=== PATIENT | female | born 1985 | race Caucasian/White ===

== ENCOUNTER 2016-12-11 18:16 | Emergency (ER) | payer BC, OTHER ==
[2016-12-11] MEDS ORDERED: KETOROLAC TROMETHAMINE 60 MG/2 ML SDV IM ONE (18:44)
--- NOTE | 2016-12-11 18:44 | ER Document Report ---
ED Medical Screen (RME) - General Stated Complaint: BACK PAIN Notes: has had back pain for the past 3 weeks left back pain with sciatica Denies urinary incontinence, stool incontinence, saddle anesthesia had previously seen PCP and was treated with muscle relaxer I have greeted and performed a rapid initial assessment of this patient. A comprehensive ED assessment and evaluation of the patient, analysis of test results and completion of the medical decision making process will be conducted by additional ED providers. - Related Data Allergies/Adverse Reactions: No Known Allergies Allergy (Unverified 12/11/16 18:42) Physical Exam - Vital signs Vitals: Temp Pulse Resp BP Pulse Ox 97.8 F 103 H 18 139/93 H 99 12/11/16 18:38 12/11/16 18:38 12/11/16 18:38 12/11/16 18:38 12/11/16 18:38 Course - Vital Signs Vital signs: Temp Pulse Resp BP Pulse Ox 97.8 F 103 H 18 139/93 H 99 12/11/16 18:38 12/11/16 18:38 12/11/16 18:38 12/11/16 18:38 12/11/16 18:38
[2016-12-11] MEDS ORDERED: METHYLPREDNISOLONE ACETATE INJ 40 MG/1 ML ML IM ONE (21:03)
[2016-12-11] MEDS ORDERED: DEXAMETHASONE SOD PHOS INJ 10 MG/1 ML VIAL IM ONE (21:03)
[2016-12-11] MEDS ORDERED: METHOCARBAMOL 750 MG TABLET PO ONE (21:04)
[2016-12-11] MEDS ORDERED: HYDROCODONE/ACETAMINOPHEN 5-325 MG TABLET PO ONE (21:04)
--- NOTE | 2016-12-11 21:11 | ER Document Report ---
Addendum entered and electronically signed by JOAO MALDONADO FNP 21:18: Discharge - Discharge Clinical Impression: Sciatica Qualifiers: Laterality: left Qualified Code(s): M54.32 - Sciatica, left side Disposition: HOME, SELF-CARE Instructions: Low Back Pain ([facility]), Oral Narcotic Medication ([facility]) Prescriptions: Hydrocodone/Acetaminophen [Prospect 5-325 Tablet] 1 each PO Q4 PRN #20 tablet PRN Reason: Methocarbamol [Robaxin 750 mg Tablet] 750 mg PO ASDIR PRN #40 tablet PRN Reason: Naproxen Sodium [Anaprox Ds] 550 mg PO BID PRN #20 tablet PRN Reason: Original Note: ED General Pain - General Chief Complaint: Back Pain Stated Complaint: BACK PAIN Mode of Arrival: Ambulatory Information source: Patient Notes: This 31-year-old female presents to the emergency room today stating she has left lower back pain radiating down her left lower extremity laterally stopping at the knee. She does have a history of sciatica states that the pain is in the same area but more intense than exacerbations of been diagnosed with sciatica in the past. TRAVEL OUTSIDE OF THE [place] IN LAST 30 DAYS: No - HPI Onset: Just prior to arrival Onset/Duration: Gradual Quality of pain: Burning - Related Data Allergies/Adverse Reactions: No Known Allergies Allergy (Unverified 12/11/16 18:42) Past Medical History - General Information source: Patient - Social History Smoking Status: Never Smoker Chew tobacco use (# tins/day): No Frequency of alcohol use: None Drug Abuse: None Family History: None Patient has suicidal ideation: No Patient has homicidal ideation: No Renal/ Medical History: Denies: Hx Peritoneal Dialysis Review of Systems - Review of Systems Constitutional: No symptoms reported EENT: No symptoms reported Cardiovascular: No symptoms reported Respiratory: No symptoms reported Gastrointestinal: No symptoms reported Genitourinary: No symptoms reported Female Genitourinary: No symptoms reported Musculoskeletal: Back pain Skin: No symptoms reported Hematologic/Lymphatic: No symptoms reported Neurological/Psychological: No symptoms reported Physical Exam - Vital signs Vitals: Temp Pulse Resp BP Pulse Ox 97.8 F 103 H 18 139/93 H 99 12/11/16 18:38 12/11/16 18:38 12/11/16 18:38 12/11/16 18:38 12/11/16 18:38 Interpretation: Normal - General General appearance: Appears well, Alert - HEENT Head: Normocephalic, Atraumatic Eyes: Normal Pupils: PERRL - Respiratory Respiratory status: No respiratory distress Chest status: Nontender Breath sounds: Normal Chest palpation: Normal - Cardiovascular Rhythm: Regular Heart sounds: Normal auscultation Murmur: No - Abdominal Inspection: Normal Distension: No distension Bowel sounds: Normal Tenderness: Nontender Organomegaly: No organomegaly - Back Back: Normal, Nontender - Extremities General upper extremity: Normal inspection, Nontender, Normal color, Normal ROM , Normal temperature General lower extremity: Normal inspection, Nontender, Normal color, Normal ROM , Normal temperature, Normal weight bearing. No: Gayla's sign Thigh: Other - Patient states she has discomfort upon palpation the left SI joint with radiation lateral down the left lower extremity stopping at roughly the knee. - Neurological Neuro grossly intact: Yes Cognition: Normal Orientation: AAOx4 [place] Coma Scale Eye Opening: Spontaneous [place] Coma Scale Verbal: Oriented [place] Coma Scale Motor: Obeys Commands [place] Coma Scale Total: 15 Speech: Normal Motor strength normal: LUE, RUE, LLE, RLE Sensory: Normal - Psychological Associated symptoms: Normal affect, Normal mood - Skin Skin Temperature: Warm Skin Moisture: Dry Skin Color: Normal Course - Vital Signs Vital signs: Temp Pulse Resp BP Pulse Ox 97.8 F 103 H 18 139/93 H 99 12/11/16 18:38 12/11/16 18:38 12/11/16 18:38 12/11/16 18:38 12/11/16 18:38 - Transfer of Care Notes: 12/11/16 21:07 Patient has no numbness no tingling no loss of bowel or bladder function or saddle anesthesia is ambulatory with a limp good distal pulses. She has been under the care of her private doctor for sciatica for the latest exacerbation 7 days ago she has been on oral steroids she was dosed at 50 mg a day decreased to 25 mg a day and she went to pick her son up today and the pain was re-exacerbated. She does have accessible follow-up with her private doctor and will be following up within the next 48 hours for farther management. 12/11/16 21:15 Patient was advised not to take any of her Flexeril while taking the Robaxin Discharge - Discharge Clinical Impression: Sciatica Qualifiers: Laterality: left Qualified Code(s): M54.32 - Sciatica, left side Disposition: HOME, SELF-CARE Instructions: Low Back Pain ([facility]), Oral Narcotic Medication ([facility]) Prescriptions: Hydrocodone/Acetaminophen [Prospect 5-325 Tablet] 1 each PO Q4 PRN #20 tablet PRN Reason: Methocarbamol [Robaxin 750 mg Tablet] 750 mg PO ASDIR PRN #40 tablet PRN Reason: Naproxen Sodium [Anaprox Ds] 550 mg PO BID PRN #20 tablet PRN Reason:
[2016-12-12 02:53] VITALS: BP 129/86
== END 2016-12-11 22:15 | disposition home or self-care (01) ==
LOC: ER 18:16
DX: M54.32 Sciatica, left side (principal)
CPT/HCPCS: 99283; 96372; J1885; J3490; J1020; J1100

== ENCOUNTER → 2016-12-19 | Outpatient (CLI) | payer OTHER | LOC: RAD 07:12 | PROVIDERS: ATTEND Nurse Practitioner | DX: M54.5 Low back pain (principal) | CPT/HCPCS: 72148 ==

== ENCOUNTER 2020-03-15 12:52 | Outpatient (CLI) | payer OTHER ==
--- NOTE | 2020-03-15 14:45 | Non Stress Test Report ---
Non Stress Test Datetime Report Generated by CPN: 03/15/2020 14:44 DEMOGRAPHIC EGA NST: 34.0 INDICATION Indication for Study (NST) Other: AMA MONITORING Monitor Explained: Monitor Explained; Test Explained; Patient Verbalized Understanding Time on Monitor: 03/15/2020 13:05 Time off Monitor: 03/15/2020 14:27 NST Duration: 82 NST INTERVENTIONS NST Interventions: PO Hydration; Reposition Patient Physician Notified NST: C Hogue CNM BABY A: [id number] BABY A Movement : Present Contraction Frequency : NONE FHR Baseline : 140 Accelerations : 15X15 Decelerations : None Variability : Moderate 6-25bpm NST Review: Meets Criteria for Reactive NST NST Review and Verified By : Julio Cesar Chahal RN NST Results: Reactive NST REPORT Report Trigger: Send Report
== END 2020-03-15 14:27 | disposition home or self-care (01) ==
LOC: LC 12:52
PROVIDERS: ATTEND Obstetrics & Gynecology
DX: O24.419 Gestational diabetes mellitus in pregnancy, unspecified control (principal); O10.913 Unspecified pre-existing hypertension complicating pregnancy, third trimester; O09.523 Supervision of elderly multigravida, third trimester; Z3A.34 34 weeks gestation of pregnancy
CPT/HCPCS: 59025

== ENCOUNTER 2020-04-22 06:05 | Inpatient (IN) | payer OTHER ==
[2020-04-15 11:05] LABS: ABSOLUTE EOSINOPHILS # (AUTO) 0.1 10^3/uL (0.0-0.6); ABSOLUTE LYMPHOCYTES (AUTO) 1.3 10^3/uL (0.5-4.7); ABSOLUTE MONOCYTES (AUTO) 0.5 10^3/uL (0.1-1.4); ABSOLUTE NEUT (AUTO) 5.6 10^3/uL (1.7-8.2); BASOPHILS % (AUTO) 0.4 % (0-2); EOSINOPHILS % (AUTO) 1.5 % (0-6); HEMATOCRIT 27.4 % (36.0-47.0); HEMOGLOBIN 9.4 g/dL (12.0-15.5); LYMPHOCYTES % (AUTO) 17.3 % (13-45); MEAN CORPUSCULAR HEMOGLOBIN 27.2 pg (27.0-33.4); MEAN CORPUSCULAR HGB CONC 34.2 g/dL (32.0-36.0); MEAN CORPUSCULAR VOLUME 80 fl (80-97); MONOCYTES % (AUTO) 6.1 % (3-13); PLATELET COUNT 281 10^3/uL (150-450); RED BLOOD COUNT 3.44 10^6/uL (3.72-5.28); RED CELL DISTRIBUTION WIDTH 16.2 % (11.5-14.0); SEGMENTED NEUTROPHILS % (AUTO) 74.7 % (42-78); TOTAL CELLS COUNTED % (AUTO) 100 %; WHITE BLOOD COUNT 7.5 10^3/uL (4.0-10.5)
[2020-04-15 11:09] LABS: APPEARANCE,URINE SLIGHTLY-CLOUDY; BILIRUBIN,URINE NEGATIVE (NEGATIVE); COLOR,URINE YELLOW; GLUCOSE, URINE NEGATIVE (NEGATIVE); KETONES,URINE NEGATIVE (NEGATIVE); LEUKOCYTE ESTERASE,URINE TRACE (NEGATIVE); NITRITE,URINE NEGATIVE (NEGATIVE); PROTEIN,URINE NEGATIVE (NEGATIVE); URINE SPECIFIC GRAVITY 1.019; UROBILINOGEN,URINE NEGATIVE mg/dL (<2.0)
[2020-04-15 11:22] LABS: URINE AMPHETAMINES SCREEN NEGATIVE; URINE BARBITURATES SCREEN NEGATIVE; URINE BENZODIAZEPINES SCREEN NEGATIVE; URINE COCAINE SCREEN NEGATIVE; URINE MARIJUANA (THC) SCREEN NEGATIVE; URINE METHADONE SCREEN NEGATIVE; URINE PHENCYCLIDINE SCREEN NEGATIVE
[2020-04-22] MEDS ORDERED: RINGERS SOLUTION,LACTATED 1,000 ML IV PRN ×2 (07:06→09:01)
[2020-04-22] MEDS ORDERED: CEFAZOLIN 1 GM/D5W RTU 0 GM/0 ML RTUPB IV ONE (07:13)
[2020-04-22] MEDS ORDERED: CEFAZOLIN SODIUM 2 GM in DEXTROSE 5%-WATER 100 ML IV PRN (07:15)
[2020-04-22] MEDS ORDERED: DIPHENHYDRAMINE HCL 50 MG/ML VIAL ONE (07:17)
[2020-04-22] MEDS ORDERED: OXYTOCIN 10 UNIT/ML VIAL ONE (07:17)
[2020-04-22] MEDS ORDERED: KETOROLAC TROMETHAMINE INJ/PF 30 MG/1 ML SDV ONE (07:17)
[2020-04-22] MEDS ORDERED: GLYCOPYRROLATE INJ 0.4 MG/2 ML VIAL ONE (07:17)
[2020-04-22] MEDS ORDERED: PHENYLEPHRINE HCL INJ/PF 10 MG/1 ML SDV ONE (07:17)
[2020-04-22] MEDS ORDERED: ONDANSETRON HCL INJ/PF 4 MG/2 ML SDV ONE (07:18)
[2020-04-22] MEDS ORDERED: MIDAZOLAM 2 MG/2 ML INJ ONE (07:18)
[2020-04-22] MEDS ORDERED: OXYTOCIN/0.9 % SODIUM CHLORIDE 30 UNIT/500 ML RTUINJ ONE (07:18)
[2020-04-22] MEDS ORDERED: ACETAMINOPHEN 1,000 MG/100 ML RTUPB IV ONE (07:18)
[2020-04-22] MEDS ORDERED: FENTANYL CITRATE INJ/PF 100 MCG/2 ML AMPUL ONE (07:18)
[2020-04-22] MEDS ORDERED: MISOPROSTOL 0.2 MG TABLET ONE (08:21)
[2020-04-22] MEDS ORDERED: MORPHINE SULFATE 10 MG/ML INJ IV PRN (08:24)
[2020-04-22] MEDS ORDERED: MEPERIDINE HCL/PF INJ 25 MG/1 ML DISP.SYRIN IV PRN (08:24)
[2020-04-22] MEDS ORDERED: FENTANYL CITRATE INJ/PF 100 MCG/2 ML AMPUL IV PRN ×3 (08:24)
[2020-04-22] MEDS ORDERED: DIPHENHYDRAMINE HCL 50 MG/ML VIAL IV PRN (08:24)
[2020-04-22] MEDS ORDERED: PROMETHAZINE HCL INJ 25 MG/1 ML VIAL IV PRN ×3 (08:24→09:01)
[2020-04-22] MEDS ORDERED: OXYCODONE-ACETAMINOPHEN 5-325 MG TABLET PO PRN ×3 (08:24→09:01)
[2020-04-22] MEDS ORDERED: ACETAMINOPHEN 325 MG TABLET PO PRN (09:01)
[2020-04-22] MEDS ORDERED: DIPH/PERTUSS(ACELL)/TETANUS VAC/PF 0.5 ML SYR (>=10YO) IM PRN (09:01)
[2020-04-22] MEDS ORDERED: OXYTOCIN/0.9 % SODIUM CHLORIDE 30 UNIT/500 ML RTUINJ IV PRN (09:01)
[2020-04-22] MEDS ORDERED: ACETAMINOPHEN 1,000 MG/100 ML RTUPB IV PRN (09:01)
[2020-04-22] MEDS ORDERED: SIMETHICONE 80 MG TAB.CHEW PO PRN (09:01)
[2020-04-22] MEDS ORDERED: MEASLES,MUMPS&RUBELLA VACC/PF 0.5 ML VIAL SUBCUT PRN (09:01)
--- NOTE | 2020-04-22 09:11 | Brief Operative Note ---
BRIEF OPERATIVE REPORT DATE OF SURGERY: 04/22/20 TIME OF SURGERY: 08:00 PREOPERATIVE DIAGNOSIS: 39+3ega, H/o section, desires repeat section, hypertrophic scar POSTOPERATIVE DIAGNOSIS: SANTIAGO - delivered SURGEON: ROBY GUTIERREZ FINDINGS: VMI delivered 0816, Apgars 9/9, weight 9#7oz, normal bilateral tubes/ovaries. IVF 1000ml, UOP, 200ml, EBL 700ml, QBL pending. COMPLICATIONS: none ESTIMATED BLOOD LOSS: 700ml TISSUE REMOVED OR ALTERED: placenta and cord not sent TECHNICAL PROCEDURE: Scar revision, Repeat section
[2020-04-22] MEDS ORDERED: BUPIVACAINE HCL 0.25 % INJ/PF (2.5 MG/1 ML) 30 ML VIAL ONE (09:58)
--- NOTE | 2020-04-22 12:18 | Delivery Summary ---
Del Sum A-C Datetime Report Generated by CPN: 04/22/2020 12:18 DELIVERY PERSONNEL DELIVERY PERSONNEL: [id number] Delivery Doctor:: Sanaz Marcus MD Anesthesiologist:: Dr Mills BUSINESS APPLICATIONS DEVELOPER:: Ashutosh BUSINESS APPLICATIONS DEVELOPER Labor and Delivery Nurse:: Addis Byers, RNC Bread Pan Greaser:: Addis Modesta, RNC Nursery Nurse:: rekha garcia RN Editor Producer/NURSING STAFFING COORDINATOR: Millicent Hargrove, ST Editor Producer/NURSING STAFFING COORDINATOR: Nimisha Anil, AURICULOTHERAPIST MATERNAL INFORMATION Delivery Anesthesia: Spinal Medications After Delivery: Pitocin Bolus-Please Comment Estimated Blood Loss (ml): 600 Delivery QBL: 595 Maternal Complications: Other Complication Details: repeat c/s LABOR SUMMARY EDC: 04/26/2020 00:00 MEMBRANES Membranes Rupture Method: Artificial Rupture of Membranes: 04/22/2020 08:14 Length of Rupture (hr): 0.03 Amniotic Fluid Color: Clear Amniotic Fluid Amount: Moderate Amniotic Fluid Odor: None STAGES OF LABOR Stage 3 hr: 0 Stage 3 min: 2 CSECTION DELIVERY Primary Indication: Repeat Elective CSection Urgency: Scheduled CSection Incision: Lower Uterine Transverse BABY A INFORMATION Infant Delivery Date/Time: 04/22/2020 08:16 Method of Delivery: Nurse Controlled Delivery: No Born in Route : No : N/A Forceps: N/A Vacuum Extraction: N/A Shoulder Dystocia : No PRESENTATION/POSITION BABY A Presentation: Cephalic Cephalic Presentation: Vertex Vertex Position: Left Occipital Anterior Breech Presentation: N/A PLACENTA INFORMATION BABY A Placenta Delivery Time : 04/22/2020 08:18 Placenta Method of Delivery: Spontaneous Placenta Status: Delivered SCORES BABY A Heart Rate 1 min: >100 bpm Resp Effort 1 min: Good Cry Reflex Irritability 1 min: Cough or Sneeze or Pulls Away Muscle Tone 1 min: Active Motion Color 1 min: Body [place], Extremities Blue Resuscitation Effort 1 min: Tactile Stimulation SCORE 1 MIN: 9 Heart Rate 5 min: >100 bpm Resp Effort 5 min: Good Cry Reflex Irritability 5 min: Cough or Sneeze or Pulls Away Muscle Tone 5 min: Active Motion Color 5 min: Body [place], Extremities Blue SCORE 5 MIN: 9 INFORMATION BABY A Gestational Age at Delivery: 39.3 Gestational Status: Full Term- 39- 40.6 Weeks Outcome : Liveborn Infant Condition : Stable Infant Sex: Male WEIGHT/LENGTH BABY A Infant Birthweight (gm): 4270 Infant Weight (lb): 9 Weight (oz): 7 Length (in): 21.00 Infant Length (cm): 53.34 CORD INFORMATION BABY A No. Cord Vessels: 3 Cord Blood Taken: Yes-For Storage (Mom's Blood type +) Infant Suction: None ASSESSMENT BABY A Complications: None Physical Findings at Delivery: Within Normal Limits Infant Respirations: Appears Normal Skin to Skin: Yes Skin to Skin Time (min): 60 Manager Surgery/ALS Called : Yes Care By: Montse ORTEGA Transferred To: Nursery
[2020-04-22] MEDS: KETOROLAC TROMETHAMINE INJ/PF 30 MG/1 ML SDV IV SCH ×2 (14:15→22:11)
[2020-04-22] MEDS: HYDROMORPHONE HCL INJ/PF 2 MG/ML AMPULE IV PRN (14:16)
[2020-04-22] MEDS: DOCUSATE SODIUM 100 MG CAPSULE PO SCH ×2 (16:46→17:32)
[2020-04-22] MEDS: PRENATAL VITAMIN W DHA CAPSULE PO SCH (16:46)
[2020-04-22] MEDS: LEVOTHYROXINE SODIUM 0.1 MG TABLET PO SCH (16:46)
[2020-04-22] MEDS: OXYCODONE-ACETAMINOPHEN 5-325 MG TABLET PO PRN (20:55)
[2020-04-23] MEDS: OXYCODONE-ACETAMINOPHEN 5-325 MG TABLET PO PRN ×5 (04:35→21:25)
[2020-04-23] MEDS ORDERED: IBUPROFEN 800 MG TABLET ONE (04:59)
[2020-04-23] MEDS ORDERED: LIDOCAINE 0.5% INJ-PF (5 MG/ML) 50 ML SDV SUBCUT PRN (05:00)
[2020-04-23] MEDS ORDERED: LACTATED RINGERS 1000 ML IV PRN (05:00)
[2020-04-23] MEDS: IBUPROFEN 800 MG TABLET PO SCH ×4 (05:05→23:47)
[2020-04-23 06:47] LABS: HEMATOCRIT 27.6 % (36.0-47.0); HEMOGLOBIN 9.2 g/dL (12.0-15.5); MEAN CORPUSCULAR HEMOGLOBIN 27.1 pg (27.0-33.4); MEAN CORPUSCULAR HGB CONC 33.2 g/dL (32.0-36.0); MEAN CORPUSCULAR VOLUME 82 fl (80-97); PLATELET COUNT 253 10^3/uL (150-450); RED BLOOD COUNT 3.38 10^6/uL (3.72-5.28); WHITE BLOOD COUNT 10.5 10^3/uL (4.0-10.5)
[2020-04-23] MEDS: LEVOTHYROXINE SODIUM 0.1 MG TABLET PO SCH (07:11)
[2020-04-23] MEDS: HYDROMORPHONE HCL INJ/PF 2 MG/ML AMPULE IV PRN ×2 (07:28→18:37)
--- NOTE | 2020-04-23 07:49 | Operative Report ---
Operative Report DATE OF SURGERY: 04/22/20 PREOPERATIVE DIAGNOSIS: Hypertrophic Scar, H/o section, 39+3ega, abilio es repeat section, , h/o CHTN (no meds) POSTOPERATIVE DIAGNOSIS: SANTIAGO - delivered OPERATION: Repeat cesaeran section, Scar revision SURGEON: ROBY GUTIERREZ ANESTHESIA: Spinal TISSUE REMOVED OR ALTERED: placenta and cord COMPLICATIONS: none ESTIMATED BLOOD LOSS: 700ml QUANTITATIVE BLOOD LOSS: 595 INTRAOPERATIVE FINDINGS: VMI delivered 0816, Apgars 9/9, weight 9#7oz, normal bilateral tubes/ovaries. IVF 1000ml, UOP, 200ml, EBL 700ml PROCEDURE: Anesthesia provider: [Ashutosh Gomes MANUFACTURING TECHNICIAN] Urine output: [200ml] IV fluids: [700ml] Indications: [34yo at 39+3ega presents for repeat section. She has a history of section for failed IOL. She has a h/o CHTN but is not on medication. c/b AMA and h/o CRUZ. The risks, benefits, alternatives were reviewed and she desires to proceed with planned procedure. ] Procedure: The patient was taken to the operating room where spinal anesthesia w as obtained and found to be adequate. She was then prepped and draped in the normal sterile fashion and placed in the dorsal supine position with a leftward tilt. The Pfannenstiel scar was excised then incision made and carried through to the underlying layers of the fascia with the scalpel. The fascia was incised in the midline and the incision extended laterally with the Perez scissors. The superior aspect of the fascial incision was then grasped with Kcoher clamps elevated and the underlying rectus muscles dissected off [bluntly]. Attention was then turned to the inferior aspect of the fascial incision which in a similar fashion was grasped, tented up with Donte clamps, and the rectus muscles dissected off [bluntly]. The rectus muscles were then in the midline and the peritoneum at the amount identified and entered [bluntly]. The peritoneal incision was then extended superiorly and inferiorly with good visualization of the bladder. The bladder blade was inserted and the vesicouterine peritoneum identified grasped with Nepalese pickups and entered sharply with the Metzenbaum scissors. This incision was then extended laterally with the Metzenbaum scissors and a bladder flap created digitally. The bladder blade was then reinserted and the lower uterine segment incised in a transverse fashion with the scalpel. The uterine incision was then extended bluntly. The bladder blade was removed and the 's head was delivered from cephalic presentation atraumatically. The nose and mouth were suctioned and the cord doubly clamped and cut. And the infant was handed off to waiting pediatricians. The placenta was then delivered spontaneously and the uterus exteriorized and cleared of all clots and debris. The uterine incision was then repaired with 1- 0 Vicryl in a running locked fashion. A second layer of the same suture was used to obtain hemostasis via imbrication of the initial layer. The bladder flap was then repaired with 3-0 chromic in a running fashion. The uterus was returned to the patient's abdomen and Surgicel was placed to help with hemostasis. The gutters were cleared of all clots and debris. All operative sites were noted to be hemostatic. The fascia was reapproximated with 0 Vicryl in a running fashion from each lateral edge to the midline. The skin was closed with 3-0 Monocryl in a running subcuticular fashion with overlying Dermabond for additional dressing as well as wound closure. The patient tolerated the procedure well. Sponge lap needle and instrument counts are correct times 2. 2 g of Ancef were given prior to skin incision. The patient was taken to the recovery area awake and in stable condition.
[2020-04-23] MEDS: PRENATAL VITAMIN W DHA CAPSULE PO SCH (09:30)
[2020-04-23] MEDS: DOCUSATE SODIUM 100 MG CAPSULE PO SCH ×2 (09:30→17:07)
--- NOTE | 2020-04-23 11:14 | PDOC PROGRESS REPORT ---
Subjective-OB Progress Note for:: 04/23/20 Subjective: Doing well, holding baby, mild incisional pain, voiding, ambulating, hsb in room Physical Exam (OB) Vital Signs: Temp Pulse Resp BP Pulse Ox 97.7 F 70 18 120/69 96 04/23/20 07:53 04/23/20 07:53 04/23/20 07:53 04/23/20 07:53 04/23/20 07:53 Intake & Output 04/22/20 04/23/20 04/24/20 06:59 06:59 06:59 Intake Total 1000 2100 Output Total 2800 Balance 1000 -700 Weight 242.6 kg - PIH/Pre-Eclampsia DTR's: 1 + Clonus: Negative Headache: Absent Epigastric Pain: No Visual Changes: No - Dressing Removed: Yes Incision: Open, Well Approximated Closure Type: Surgical Glue - Lochia Lochia Amount: Scant < 10 ml Lochia Color: Rubra/Red - Abdomen Description: Soft, Round Hernia Present: No Fundal Description: Firm, Midline Fundal Height: u/u - u/2 Objective-Diagnostic Laboratory: 04/23/20 06:27 04/23/20 06:27 WBC 10.5 RBC 3.38 L Hgb 9.2 L Hct 27.6 L MCV 82 MCH 27.1 MCHC 33.2 RDW 17.0 H Plt Count 253 Assessment and Plan(PN) - Assessment and Plan (1) Advanced maternal age during Is this a current diagnosis for this admission?: Yes (2) S/P repeat low transverse Is this a current diagnosis for this admission?: Yes - Time Spent with Patient Time with patient: Less than 15 minutes Medications reviewed and adjusted accordingly: Yes - Disposition Within: within 48 hours
[2020-04-24] MEDS: OXYCODONE-ACETAMINOPHEN 5-325 MG TABLET PO PRN ×3 (01:52→11:58)
[2020-04-24] MEDS: LEVOTHYROXINE SODIUM 0.1 MG TABLET PO SCH (06:05)
[2020-04-24] MEDS: IBUPROFEN 800 MG TABLET PO SCH ×2 (06:05→11:58)
[2020-04-24] MEDS: DOCUSATE SODIUM 100 MG CAPSULE PO SCH (09:16)
[2020-04-24] MEDS: PRENATAL VITAMIN W DHA CAPSULE PO SCH (09:16)
--- NOTE | 2020-04-24 10:38 | PDOC PROGRESS REPORT ---
Subjective-OB Progress Note for:: 04/24/20 Subjective: Doing well, no c/o, , pain under control, holding baby, hsb at BS Physical Exam (OB) Vital Signs: Temp Pulse Resp BP Pulse Ox 97.9 F 79 18 123/61 99 04/24/20 07:31 04/24/20 07:31 04/24/20 07:31 04/24/20 07:31 04/24/20 07:31 Intake & Output 04/23/20 04/24/20 04/25/20 06:59 06:59 06:59 Intake Total 2100 1500 Output Total 2800 Balance -700 1500 - PIH/Pre-Eclampsia DTR's: 1 + Clonus: Negative Headache: Absent Epigastric Pain: No Visual Changes: No - Dressing Removed: - incision GUNJAN Incision: Open, Well Approximated Closure Type: Surgical Glue - Lochia Lochia Amount: Scant < 10 ml Lochia Color: Rubra/Red - Abdomen Description: Soft, Round Hernia Present: No Fundal Description: Firm, Midline Fundal Height: u/u - u/2 Objective-Diagnostic Laboratory: 04/23/20 06:27 Assessment and Plan(PN) - Assessment and Plan (1) Advanced maternal age during Is this a current diagnosis for this admission?: Yes (2) S/P repeat low transverse Is this a current diagnosis for this admission?: Yes - Time Spent with Patient Time with patient: Less than 15 minutes Medications reviewed and adjusted accordingly: Yes - Disposition Anticipated Discharge: Home Within: within 24 hours
--- NOTE | 2020-04-24 10:47 | PDOC DISCHARGE SUMMARY ---
Impression - Admit/DC Date/PCP Admission Date/Primary Care Provider: 04/22/20 06:06 QUAN PUGA MD Discharge Date: 04/24/20 - Discharge Diagnosis (1) Advanced maternal age during Is this a current diagnosis for this admission?: Yes (2) S/P repeat low transverse Is this a current diagnosis for this admission?: Yes - Additional Information Resuscitation Status: Full Code Discharge Diet: As Tolerated, Regular Discharge Activity: Activity As Tolerated, Pelvic Rest Referrals: QUAN PUGA MD [Primary Care Provider] - (rtc 1 week) Prescriptions: Oxycodone HCl/Acetaminophen [Percocet 5-325 mg Tablet] 1 tab PO Q4HP PRN #20 tablet PRN Reason: Ibuprofen [Motrin 800 mg Tablet] 800 mg PO Q6 #60 tablet Home Medications: Acetaminophen [Tylenol 325 mg Tablet] 3 tab PO Q6H PRN 03/15/20 Docusate Sodium [Colace 100 mg Capsule] 1 tab PO DAILY PRN 03/15/20 Ferrous Sulfate [Feosol 325 mg Tablet] 1 tab PO DAILY 03/15/20 Vits96/Iron Fum/Folic [ Tablet] 1 tab PO DAILY 03/15/20 Levothyroxine Sodium [Synthroid 0.1 mg Tablet] 0.1 mg PO DAILY 04/15/20 Ibuprofen [Motrin 800 mg Tablet] 800 mg PO Q6 #60 tablet 04/24/20 Oxycodone HCl/Acetaminophen [Percocet 5-325 mg Tablet] 1 tab PO Q4HP PRN #20 tablet 04/24/20 HPI Gestational Age: 39.3 Reason(s) for Admission: Ceasarean Section-Repeat, Advanced Maternal Age Procedures: NST, Ultrasound Intrapartum Procedure(s): : Low Cervical, Transverse Hospital Course Hospital Course: normal post op Results Laboratory Results: WBC 10.5 10^3/uL (4.0-10.5) 04/23/20 06:27 RBC 3.38 10^6/uL (3.72-5.28) L 04/23/20 06:27 Hgb 9.2 g/dL (12.0-15.5) L 04/23/20 06:27 Hct 27.6 % (36.0-47.0) L 04/23/20 06:27 MCV 82 fl (80-97) 04/23/20 06:27 MCH 27.1 pg (27.0-33.4) 04/23/20 06: MCHC 33.2 g/dL (32.0-36.0) 04/23/20 06:27 RDW 17.0 % (11.5-14.0) H 04/23/20 06:27 Plt Count 253 10^3/uL (150-450) 04/23/20 06:27 Lymph % (Auto) 17.3 % (13-45) 04/15/20 10:29 Glenn % (Auto) 6.1 % (3-13) 04/15/20 10:29 Eos % (Auto) 1.5 % (0-6) 04/15/20 10:29 Baso % (Auto) 0.4 % (0-2) 04/15/20 10:29 Absolute Neuts (auto) 5.6 10^3/uL (1.7-8.2) 04/15/20 10:29 Absolute Lymphs (auto) 1.3 10^3/uL (0.5-4.7) 04/15/20 10:29 Absolute Monos (auto) 0.5 10^3/uL (0.1-1.4) 04/15/20 10:29 Absolute Eos (auto) 0.1 10^3/uL (0.0-0.6) 04/15/20 10:29 Absolute Basos (auto) 0.0 10^3/uL (0.0-0.2) 04/15/20 10:29 Seg Neutrophils % 74.7 % (42-78) 04/15/20 10:29 POC Glucose 83 mg/dL (70-110) 04/22/20 05:24 Urine Color YELLOW 04/15/20 10:25 Urine Appearance SLIGHTLY-CLOUDY 04/15/20 10:25 Urine pH 6.0 (5.0-9.0) 04/15/20 10:25 Ur Specific [place] 1.019 04/15/20 10:25 Urine Protein NEGATIVE mg/dL (NEGATIVE) 04/15/20 10:25 Urine Glucose (UA) NEGATIVE mg/dL (NEGATIVE) 04/15/20 10:25 Urine Ketones NEGATIVE mg/dL (NEGATIVE) 04/15/20 10:25 Urine Blood NEGATIVE (NEGATIVE) 04/15/20 10:25 Urine Nitrite NEGATIVE (NEGATIVE) 04/15/20 10:25 Urine Bilirubin NEGATIVE (NEGATIVE) 04/15/20 10:25 Urine Urobilinogen NEGATIVE mg/dL (<2.0) 04/15/20 10:25 Ur Leukocyte Esterase TRACE (NEGATIVE) H 04/15/20 10:25 Urine WBC (Auto) 3 /HPF 04/15/20 10:25 Urine RBC (Auto) 1 /HPF 04/15/20 10:25 Urine Bacteria (Auto) TRACE /HPF 04/15/20 10:25 Squamous Epi Cells Auto 3 /HPF 04/15/20 10:25 Urine Mucus (Auto) RARE /LPF 04/15/20 10:25 Urine Ascorbic Acid NEGATIVE (NEGATIVE) 04/15/20 10:25 Urine Opiates Screen NEGATIVE 04/15/20 10:25 Urine Methadone Screen NEGATIVE 04/15/20 10:25 Ur Barbiturates Screen NEGATIVE 04/15/20 10:25 Ur Phencyclidine Scrn NEGATIVE 04/15/20 10:25 Ur Amphetamines Screen NEGATIVE 04/15/20 10:25 U Benzodiazepines Scrn NEGATIVE 04/15/20 10:25 Urine Cocaine Screen NEGATIVE 04/15/20 10:25 U Marijuana (THC) Screen NEGATIVE 04/15/20 10:25 COVID-19 Source NASOPHARYNGEAL 04/15/20 10:25 COVID-19 (DOMINGA) NOT DETECTED 04/15/20 10:25 Blood Type A POSITIVE 04/21/20 11:00 Antibody Screen NEGATIVE 04/21/20 11:00 Plan Health Concerns: post op pain Plan of Treatment: discharge home, routine post op Goals: no complications Time Spent: Less than 30 Minutes
[2020-04-24 11:27] VITALS: BP 134/72
== END 2020-04-24 13:23 | disposition home or self-care (01) | DRG 788 ==
LOC: LC 06:05 → 2S 06:06 → EDSTATUS 07:45
PROVIDERS: ADMIT Student in an Organized Health Care Education/Training Program; ATTEND Student in an Organized Health Care Education/Training Program
PROC: 10D00Z1 Extraction of Products of Conception, Low, Open Approach (ICD-10-PCS; principal; 2020-04-22)
PROC: 0HB7XZZ Excision of Abdomen Skin, External Approach (ICD-10-PCS; 2020-04-22)
DX: O99.284 Endocrine, nutritional and metabolic diseases complicating childbirth (principal); O34.211 Maternal care for low transverse scar from previous cesarean delivery; E03.9 Hypothyroidism, unspecified; L91.0 Hypertrophic scar; Z20.828 Contact with and (suspected) exposure to other viral communicable diseases; Z3A.39 39 weeks gestation of pregnancy; Z37.0 Single live birth
CPT/HCPCS: 1961; 36415; 59025; 64450; 76942; 80307; 81001; 82962; 85025; 85027; 86850; 86900; 86901; 87635; 94760; 94799; C9803; J0131; J0690; J1170; J1200; J1885; J2250; J2370; J2405; J2590; J3010; J3490; J7060; J7120